=== PATIENT | male | born 1995 | race Caucasian/White ===

== ENCOUNTER 2021-11-20 03:28 | Inpatient (IN) ==
[2021-11-20] MEDS ORDERED: ONDANSETRON INJ 2 MG/ML 2 ML VIAL IV STA (03:40)
[2021-11-20] MEDS: MoRPHine SULFATE 4 MG/ML 1 ML CARP\\VIAL IV PRN ×7 (03:50→11:43)
[2021-11-20 04:04] LABS: Basophils # (auto) 0.03 K/uL (0-0.2); Basophils % (auto) 0.3 %; Eosinophils # (auto) 0.06 K/uL (0-0.5); Eosinophils % (auto) 0.7 %; Hematocrit (blood only) 43.9 % (42-52); Hemoglobin 15.3 g/dL (14.0-18.0); Immature Granulocytes # (auto) 0.01 K/uL (0.00-0.02); Immature Granulocytes % (auto) 0.1 %; Lymphocytes # (auto) 4.01 K/uL (1.2-3.4); Lymphocytes % (auto) 46.7 %; Mean Corpuscular Hemoglobin 30.2 pg (25-34); Mean Corpuscular Hgb Conc 34.9 g/dL (32-36); Mean Corpuscular Volume 86.8 fL (80-100); Mean Platelet Volume 9.7 fL (7.4-10.4); Monocytes # (auto) 0.83 K/uL (0.11-0.59); Monocytes % (auto) 9.7 %; Neutrophils # (auto) 3.64 K/uL (1.4-6.5); Neutrophils % (auto) 42.5 %; Platelet Count 329 K/uL (130-400); RDW Coefficient of Variation 12.5 % (11.5-14.5); RDW Standard Deviation 39.9 fL (36.4-46.3); Red Blood Count 5.06 M/uL (4.7-6.1); White Blood Count 8.58 K/uL (4.8-10.8)
[2021-11-20 04:17] LABS: Albumin Globulin Ratio 1.5 (0.9-2); Albumin Level 4.2 gm/dl (3.4-5.0); Bilirubin,Total 0.4 mg/dl (0.2-1.0); Calcium 8.8 mg/dl (8.5-10.1); Creatinine Clr Calc Pharmacy 131.5 ml/min; Est GFR (African American) 120.7 ml/min; Est GFR (Non-African American) 104.1 ml/min; Globulin 2.8 gm/dl (2.5-4.0); Potassium 4.1 mmol/L (3.5-5.1)
[2021-11-20] MEDS ORDERED: ONDANSETRON INJ 2 MG/ML 2 ML VIAL IV PRN ×3 (04:52→18:22)
--- NOTE | 2021-11-20 05:29 | Emergency Department Note ---
History of Present Illness General Chief complaint: Lower Extremity Injury/Pain Stated complaint: FALL w/ TIB/FIB OPEN FX Time Seen by Provider: 11/20/21 03:36 History of Present Illness Maximum Pain Intensity: 7 This is a 26-year-old male presenting to the emergency department for evaluation of left lower leg injury that occurred just prior to arrival. 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 The patient tried to maneuver out of the way, however this did strike him on the left leg. The patient was not able to ambulate after the injury. He believes that he saw a bone protruding from the leg. EMS did m anipulate the leg and bring it to a more anatomic position. They did call and for medical command and the patient was given 2 g IV Ancef prehospital. The patient is usually healthy without chronic medical disease. He does not take any medication on a regular basis. Past medical history includes lazy eye surgery, but no other surgical history. He last ate food around 6 PM yesterday, and drank liquid around 2 AM today. He does not have any numbness or paresthesias. No active bleeding. He rates his discomfort a 7/10. Allergies Allergy/AdvReac Type Severity Reaction Status Date / Time No Known Allergies Allergy Verified 11/20/21 05:23 Past Med/Surg History Medical History (Updated 11/20/21 @ 05:42 by Rogelio Gusman PA-C) No chronic diseases present Surgical History (Updated 11/20/21 @ 05:35 by Rogelio Gusman PA-C) H/O eye surgery Social History Smoking Status: Never smoker Feels Safe at Home: Yes Review of Systems A total of 10 systems reviewed and were otherwise negative Physical Exam Vital Signs Vital Signs - 24 hr 11/20/21 03:37 11/20/21 04:39 Temperature 36.3 C L Temperature Source Oral Pulse Rate 73 Pulse Rate [Apical] 88 Respiratory Rate 15 14 Respiratory Effort / Characteristics Non-Labored Spontaneous Respiratory Depth Normal Blood Pressure 153/98 H Blood Pressure [Left Arm] 142/85 H Blood Pressure Mean 116 Blood Pressure Mean [Left Arm] 104 Blood Pressure Position Lying Pulse Oximetry 99 98 Oxygen Delivery Method Room Air Room Air Sepsis Recent Fever Within 48 Hours No Sepsis New/Unexplained Change in Mental Status No Sepsis Action Taken by Nursing No Action Required VITALS: Vitals are noted on the nurse's note and reviewed by myself. Vital signs stable. GENERAL: Well-developed, well-nourished, white male, who is moderately uncomfortable but overall cooperative HEAD: Normocephalic atraumatic. NECK: Supple without nuchal rigidity. No lymphadenopathy. No thyromegaly. Cervical spine is nontender. HEART: Regular rate and rhythm without murmurs gallops or rubs. LUNGS: Clear to auscultation bilaterally without wheezes, rales or rhonchi. No retractions or accessory muscle use. ABDOMEN: Positive normal bowel sounds x 4. Soft, nontender, without masses or organomegaly. No guarding or rebound tenderness. MUSCULOSKELETAL: There is notable edema and ecchymosis to the anterior lateral aspect of the left lower leg. There does appear to be a small roughly 2 cm in the area concerning for open tract. Compartments are soft. Patient has full sensation range of motion to the distal ankle and foot. No significant active bleeding. No significant tenderness of the left hip or left knee. Symptoms are intact and normal. NEURO: Patient was alert and oriented to person place and time. CN II through XII grossly intact. No focal neurological deficits. Course Administered Medications Morphine Sulfate (Morphine Sulfate 4 Mg/Ml 1 Ml Carp\Vial) 4 mg IV Q30M PRN PRN Reason: Pain Stop: 12/04/21 03:39 Last Admin: 11/20/21 05:01 Dose: 4 mg Documented by: [id number] Admin: 11/20/21 04:29 Dose: 4 mg Documented by: [id number] Admin: 11/20/21 03:50 Dose: 4 mg Documented by: [id number] Discontinued Medications Ondansetron HCl (Ondansetron Inj 2 Mg/Ml 2 Ml Vial) 4 mg IV NOW STA Stop: 11/20/21 03:41 Last Admin: 11/20/21 03:50 Dose: 4 mg Documented by: [id number] Medical Decision Making Differential Diagnosis Differential diagnosis includes, but is not limited to: Sprain, strain, fracture, dislocation, subluxation, contusion, and others Laboratory Data Result diagrams: 11/20/21 03:40 11/20/21 03:40 Lab Results 11/20/21 11/20/21 11/20/21 Range/Units 03:40 03:40 03:54 WBC 8.58 (4.8-10.8) K/uL RBC 5.06 (4.7-6.1) M/uL Hgb 15.3 (14.0-18.0) g/dL Hct 43.9 (42-52) % MCV 86.8 (80-100) fL MCH 30.2 (25-34) pg MCHC 34.9 (32-36) g/dL RDW Std Deviation 39.9 (36.4-46.3) fL RDW Coeff of Aura 12.5 (11.5-14.5) % Plt Count 329 (130-400) K/uL MPV 9.7 (7.4-10.4) fL Immature Gran % (Auto) 0.1 % Neut % (Auto) 42.5 % Lymph % (Auto) 46.7 % [place] % (Auto) 9.7 % Eos % (Auto) 0.7 % Baso % (Auto) 0.3 % Neut # (Auto) 3.64 (1.4-6.5) K/uL Lymph # (Auto) 4.01 H (1.2-3.4) K/uL [place] # (Auto) 0.83 H (0.11-0.59) K/uL Eos # (Auto) 0.06 (0-0.5) K/uL Baso # (Auto) 0.03 (0-0.2) K/uL Immature Gran # (Auto) 0.01 (0.00-0.02) K/uL Sodium 139 (136-145) mmol/L Potassium 4.1 (3.5-5.1) mmol/L Chloride 107 (98-107) mmol/L Carbon Dioxide 24 (21-32) mmol/L Anion Gap 8 (3-11) BUN 20 (6-23) mg/dl Creatinine 1.00 (0.6-1.4) mg/dl Est Cr Clr Drug Dosing 131.5 ml/min Est GFR ( Amer) 120.7 ml/min Est GFR (Non-Af Amer) 104.1 ml/min BUN/Creatinine Ratio 20.0 (10-20) Glucose 132 H (70-99(Fasting)) mg/dl Calcium 8.8 (8.5-10.1) mg/dl Total Bilirubin 0.4 (0.2-1.0) mg/dl AST 25 (13-39) U/L ALT 35 (7-52) U/L Alkaline Phosphatase 58 (34-104) U/L Total Protein 7.0 (6.0-8.3) gm/dl Albumin 4.2 (3.4-5.0) gm/dl Globulin 2.8 (2.5-4.0) gm/dl Albumin/Globulin Ratio 1.5 (0.9-2) SARS-CoV-2, RNA, NAAT NEGATIVE (NEGATIVE) MDM Narrative Physical exam and history were performed. Nursing notes, EMR, and Medication List were personally reviewed. Patient appears to have suffered injury as described above. Physical exam is concerning for open fracture of the left lower leg. IV access was established and labs were obtained. He has been provided Ancef prehospital. He was given IV morphine and IV Zofran. X-rays were performed. Patient's blood work is as above and was reviewed. He does not have a significantly elevated white blood cell count, gross anemia, bandemia, or significant electrolyte imbalance. X-rays were reviewed by myself and my attending and appear to show fracture of the mid tibia and fibula. Case was discussed with the on-call orthopedist, Dr. Goodman, who will admit the patient for definitive surgical washout and repair later today. Patient's wounds were cleansed and nonadherent dressing was placed underneath an Ortho-Glass splint. COVID was performed and negative. Chest x- ray was also gathered presurgically and did not show any acute findings. Please see the orthopedic dictation for further patient course, plan, and disposition. The chart was completed utilizing [employer] Speech Voice Recognition Software. Grammatical errors, random word insertions, pronoun errors, and incomplete sen tences are an occasional consequence of this system due to software limitations, ambient noise, and hardware issues. Any formal questions or concerns about the content, text, or information contained within the body of this dictation should be directly addressed to the provider for clarification. . Impression & Plan Open fracture of tibia and fibula Discharge Plan Visit Data Chief Complaint: Lower Extremity Injury/Pain Stated Complaint: FALL w/ TIB/FIB OPEN FX ED Provider: Yolanda Morfin ED Midlevel Provider: Rogelio Gusman Discharge Problem: Open fracture of tibia and fibula Patient Disposition: Admitted As Inpatient Forms Stand Alone Forms: My [facility], Virtual Emergency Department, Important Visit Information Referrals Referrals: PCP,NO [Primary Care Provider] - Discharge Problem: Open fracture of tibia and fibula Qualifiers: Encounter type: initial encounter Laterality: left
[2021-11-20] MEDS ORDERED: ceFAZolin 2000MG 2,000 MG/15 ML SYR IV SCH (06:00)
--- NOTE | 2021-11-20 06:56 | XRay Report ---
XR chest 1V portable semi erect CLINICAL HISTORY: Fall/Preop COMPARISON STUDY: No previous studies for comparison. FINDINGS: Cardiac silhouette is prominent, likely due to technique. Probable hypoventilatory study. N o consolidation or evidence for pulmonary edema. No pneumothorax or pleural effusion is noted. IMPRESSION: No acute cardiopulmonary findings. ACT 112: Negative or not required by law. Electronically signed by: Jose Rae M.D. 11/20/2021 6:55 AM
--- NOTE | 2021-11-20 07:07 | History & Physical Report ---
Date of Service November 20, 2021 Assessment & Plan (1) Open fracture of tibia and fibula: Plan: He has an open left tibial shaft fracture. Based on ER description of the wound, it sounds like a grade 1-2 open injury. He did receive 2 g of IV Ancef within an hour of the injury, and there is no evidence of compartment syndrome. I would highly recommend irrigation and debridement and intramedullary nailing of his tibial shaft fracture. He is in agreement this plan. We will get this done as soon as possible. Risks, benefits, and alternatives of surgery were explained in detail. The surgical procedure, as well as postoperative recovery and rehabilitation, was also explained in detail. Risks include bleeding; infection; damage to surrounding structures such as nerves, blood vessels, and tendons that run in the area; persistent pain or stiffness; nonunion; malunion; hardware failure; painful prominent hardware requiring removal; or need for further surgery. The patient understands all of this and wishes to proceed with surgery. Informed consent was obtained. Encounter type: initial encounter Laterality: left Admission and Anticipated Discharge Date Admission Date: November 20, 2021 History of Present Illness Chief Complaint: Left lower leg injury Primary Care Provider: NO PCP Mr. Espino is a 26-year-old male who injured his left leg this morning. 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 He had immediate pain, deformity, and open wound, and inability to bear weight on the left leg. Injury occurred around 2:30-3:00 AM. He was transported to the hospital, and did receive 2 g of IV Ancef in the ambulance en route to the hospital. In the emergency room, his wound was r eported to be about 2 cm in length and directly over the fracture site in the anterior aspect of the lower leg. No gross contamination. The wound was washed out and dressed, and splint was applied. Allergies Allergy/AdvReac Type Severity Reaction Status Date / Time No Known Allergies Allergy Verified 11/20/21 05:23 Past Med/Surg History Medical History (Updated 11/20/21 @ 05:42 by Rogelio Gusman PA-C) No chronic diseases present Surgical History (Updated 11/20/21 @ 05:35 by Rogelio Gusman PA-C) H/O eye surgery Social History Smoking Status: Never smoker Feels Safe at Home: Yes Physical Exam Physical Exam: Is resting comfortably in bed. No apparent distress. Examination of the left lower leg reveals a posterior and U-splint in place. Compartments are soft and compressible. Motor and sensory function is intact distally. No pain with passive stretch of the great toe. Foot is warm well perfused. Results & Data ([facility]) Vital Signs (Past 12 Hours) Vital Signs Temp Pulse Pulse Resp BP BP Pulse Ox 11/20/21 04:39 88 14 142/85 H 98 11/20/21 03:37 36.3 C L 73 15 153/98 H 99 Diagnostic Findings X-rays of the left lower leg show a moderately displaced but minimally comminuted diaphyseal tibial shaft fracture with associated fibular shaft fracture. Code Status & VTE Plan VTE Prophylaxis Plan VTE Prophylaxis will be ordered: Yes
--- NOTE | 2021-11-20 07:21 | XRay Report ---
XR tibia fibula LT 2V CLINICAL HISTORY: Fracture. COMPARISON: None FINDINGS: Note is made of acute comminuted displaced fractures of the mid diaphyses of the left tibi a and fibula. Soft tissue gas is noted. This indicates open fracture, likely due to the tibial fractu re. Tibial fracture is displaced 1.4 cm. Fibular fracture is displaced 1.1 cm. A few punctate densiti es adjacent to the tibial fracture likely reflect bone fragments. Alignment of the left knee and left ankle is anatomic. Talar dome is intact. IMPRESSION: Open displaced comminuted left tibial and fibular diaphyseal fractures, as described abov e. ACT 112: Negative or not required by law. Electronically signed by: Jose Rae M.D. 11/20/2021 7:19 AM
[2021-11-20] MEDS ORDERED: ONDANSETRON INJ 2 MG/ML 2 ML VIAL ONE (13:25)
[2021-11-20] MEDS ORDERED: MIDAZOLAM HCL 1 MG/ML 2ML VIAL ONE (13:25)
[2021-11-20] MEDS ORDERED: LIDOCAINE 2% 2 ML VIAL/AMP(20MG/ML) INFIL ONE (13:25)
[2021-11-20] MEDS ORDERED: PROPOFOL IV EMULSION 10 MG/ML 20 ML VIAL IV ONE (13:25)
[2021-11-20] MEDS ORDERED: fentaNYL citrate 100 MCG/2 ML VIAL ONE ×2 (13:25→14:55)
[2021-11-20] MEDS ORDERED: DEXAMETHASONE SOD INJ 4 MG/ML VIAL ONE (13:25)
--- NOTE | 2021-11-20 13:36 | Anesthesiology Consultation ---
Date of Service November 20, 2021 Assessment & Plan Chart Review Chart Review: Acceptable Risk for Surgery and Patient NOT seen in Pre Admission Testing Consults Requested none ASA ASA1 Proposed Anesthesia Anesthesia Type: General Risk / Benefits Reviewed With: PT / POA / Parent / Guardian, Accepts Plan and Informed Consent Obtained Additional Comments: covid test negative History Surgery Operation Date: 11/20/21 09:00 Proposed Procedures p Left Intramedullary Nail Tibia - Roberto Goodman M.D. Height/Weight Height: 5 ft 10 in Weight: 93.5 kg Allergies Allergy/AdvReac Type Severity Reaction Status Date / Time No Known Allergies Allergy Verified 11/20/21 05:23 Medications Active Medications Generic Name Dose Route Start Last Admin Trade Name Freq PRN Reason Stop Dose Admin Morphine Sulfate 4 mg 11/20/21 03:40 11/20/21 11:43 Morphine Sulfate 4 Mg/Ml 1 Ml Carp\Vial IV 12/04/21 03:39 4 mg Q30M PRN Administration Pain NPO Date Last Intake of Fluids: 11/19/21 Time Last Intake of Fluids: 18:00 Date Last Intake of Solids: 11/19/21 Time Last Intake of Solids: 18:00 Past Medical History Medical History No chronic diseases present Exercise / Class Metabolic Activity 1 > 8 Run/Swim/Ski/Tennis Past Surgical History Surgical History H/O eye surgery Past Anesthesia History No Hx of Anesthesia Complications and No Family Hx of Anesthesia Complications History of PONV No Hx of PONV and No Hx of Motion Sickness Social History Smoking Status: Never smoker Hx Alcohol Use: Yes Alcohol type: wine alcohol intake frequency: holidays/special occasions only Hx Substance Use: No Physical Exam Vital Signs Last Vital Signs Temp 36.8 C 11/20/21 13:20 Pulse 119 H 11/20/21 13:20 Resp 22 11/20/21 13:20 BP 155/89 H 11/20/21 13:20 Pulse Ox 93 11/20/21 13:20 Constitutional not obese ENMT Mouth: no dentition abnormality Thyromental Distance: > or= 3.5 Finger Breadths Mallampati Class: II Neck normal visual inspection, trachea midline and + facial hair; neck extension not limited Respiratory normal respiratory effort Auscultation: lungs clear to auscultation bilaterally Cardiovascular Rate/Rhythm: regular rate and regular rhythm Heart Sounds: no murmur Vessels: no carotid bruit Musculoskeletal Spine: normal cervical ROM Extremities: + extremities abnormal to inspection Neurologic moves all extremities Motor/Sensory: no sensory deficit Psychiatric Orientation: alert and oriented x 3 Testing Laboratory Results 11/20/21 03:40 11/20/21 03:40 Chest X-Ray Date: 11/20/21 Findings: + NAD
[2021-11-20] MEDS ORDERED: FLUMAZENIL 0.1 MG/1 ML 10 ML VIAL IV PRN (13:37)
[2021-11-20] MEDS ORDERED: HYDROmorphone INJ 1 MG/ML SYRINGE IV PRN (13:37)
[2021-11-20] MEDS ORDERED: NALOXONE HCL 0.4 MG/1 ML VIAL/CARP IV PRN ×2 (13:37→18:22)
[2021-11-20] MEDS ORDERED: PROMETHAZINE HCL 12.5 MG in SODIUM CHLORIDE 0.9% 50 ML IV PRN (13:37)
[2021-11-20] MEDS ORDERED: fentaNYL citrate 100 MCG/2 ML VIAL IV PRN (13:37)
[2021-11-20] MEDS ORDERED: ATROPINE SULFATE 0.1 MG/ML 10ML SYR IV PRN (13:37)
[2021-11-20] MEDS ORDERED: ePHEDrine sulfate 50 MG/ML AMP IV PRN (13:37)
[2021-11-20] MEDS ORDERED: HYDROmorphone INJ 2 MG/ML SYR/VIAL ONE (14:35)
[2021-11-20] MEDS ORDERED: NEOSTIGMINE METHYLSULFATE 1 MG/ML 10ML VIAL ONE (14:42)
[2021-11-20] MEDS ORDERED: ceFAZolin 330 MG/ML 1 GM VIAL ONE (14:42)
[2021-11-20] MEDS ORDERED: GLYCOPYRROLATE 0.2 MG/ML VIAL ONE (14:42)
--- NOTE | 2021-11-20 16:45 | Post Operative Brief Note ---
Immediate Post Op Note v1 Date of Surgery November 20, 2021 Pre & Post Diagnosis Operation Date: 11/20/21 09:00 Pre-Op Diagnosis: Left leg open tibia and fibula fracture Post-Op Diagnosis: Left leg open tibia and fibula fracture I identified the patient and participated in the time-out.: Yes Procedure Operation Date: 11/20/21 09:00 Actual Procedures p Irrigation and debridement of open tibia fracture and Intramedullary nailing of open tiba fracture (Left) - Roberto Goodman M.D. Surgeon Roberto Goodman Nitrogen Operator Foster Borges PA-C Estimated Blood Loss 75 Findings Consistent with Post-Op Diagnosis
--- NOTE | 2021-11-20 16:48 | Operative Report ---
Post Operative Report Pre & Post Diagnosis Operation Date: 11/20/21 09:00 Pre-Op Diagnosis: Left leg open tibia and fibula fracture Post-Op Diagnosis: Left leg Grade 1 open tibia and fibula fracture I identified the patient and participated in the time-out.: Yes Procedure Operation Date: 11/20/21 09:00 Actual Procedures 1. Left leg irrigation and debridement of Grade 1 open tibia fracture (23732) 2. Intramedullary nailing of left tibial shaft fracture (59151) - Roberto Goodman M.D. Surgeon Roberto Goodman Junior Loan Processor Foster Borges PA-C Estimated Blood Loss 75 Findings Consistent with Post-Op Diagnosis Specimens None Drains None Anesthesia Type General Complications none Disposition Disposition: Recovery Room Indications Mr. Espino is a 26-year-old male who injured his left lower leg when a heavy milk crate fell against that earlier this morning. History, clinical exam, and imaging were consistent with the above diagnosis. Risks, benefits, and alternatives of surgery were explained in detail. The patient understood all this and wished to proceed. Description of Procedure Patient was identified in the preoperative holding area. Operative extremity was marked. Regional blockade was given by the Anesthesia Staff. Patient was then brought back to the operating room, and general anesthesia was induced wit hout complication. Appropriate weight-based dose of Ancef was infused intravenously for antibiotic prophylaxis. Tourniquet was placed on the left thigh. The leg was then prepped and draped in a standard sterile fashion using Chlorhexidine prep. The leg was then exsanguinated with an Esmarch, and the tourniquet was inflated. I first examined the open wound and underlying fracture site. There was an approximately 1.5 cm oblique laceration on the anterior medial aspect of the lower leg at about the midshaft tibia level. There was copious bloody drainage consistent with an open fracture site. The fracture fragments were palpable deep within the wound. There is no obvious gross contamination within the wound. The open fracture site was extended proximally and distally as necessary for adequate debridement of the soft tissues and open fracture site. Aggressive but careful sharp debridement was performed with a curette, rongeur, knife, and scissors. After complete and thorough debridement was performed, I then copiously irrigated the wound with sterile saline via pulsatile irrigation. After thorough debridement and irrigation were complete, I then proceeded with fracture fixation. Reduction maneuver was performed, and adequate alignment was achieved both under fluoroscopic imaging and by direct palpation at the open fracture site. I then hyperflexed the knee and made a medial parapatellar incision. Guidewire was placed onto the anterior corner of the tibial plateau. Proper position and trajectory was verified under fluoroscopic imaging. The guidewire was then driven into the proximal tibia. Entry reamer was then passed over the guidewire, using a drill sleeve to protect the patellar tendon. I then placed a ball-tipped guidewire into the tibial shaft with a small bend at the distal tip. This was advanced across the fracture site and driven into center- center position in the distal tibia, stopping at the physeal scar. I then measured for proper length of the tibial nail, and selected a 360mm nail as proper nail length. I then sequentially reamed over the guidewire until I got proper cortical chatter with a 11.5mm reamer diameter, and therefore selected an 10mm nail as a proper nail diameter. The nail was then inserted over the guidewire and seated properly into the distal tibia, while ensuring there was no displacement of the fracture site during nail advancement. I then placed 2 proximal locking screws, 1 through the dynamic hole and 1 through a static locking hole, utilizing a radiolucent drill guide. Appropriate length 5mm proximal locking screws were drilled, measured, and inserted. I then removed the proximal targeting guide off of the proximal aspect of the nail. I threaded a 5mm cap into the proximal end of the nail to assist in potential future removal. The leg was then extended, and two 5mm distal locking screws were placed to stabilize the distal fracture fragment. Final fluoroscopic imaging was then obtained to verify proper hardware position, screw length, and fracture reduction. Wounds were then copiously irrigated with sterile saline. Medial parapatellar arthrotomy was closed with 1 Vicryl suture. Subcutaneous tissue was closed with 3-0 Vicryl, and skin was closed with tracy. Sterile dressings were then applied with Xeroform, sterile gauze, sterile Webril, a posterior plaster splint, and Bob wrap. The drapes were removed, the patient was awakened from anesthesia, and taken to the Post Anesthesia Care Unit in stable condition. There were no immediate complications from the procedure. I was present and scrubbed for the entire procedure. Due to the complex nature of the procedure, the entire surgery was performed with the operational assistance of Foster Borges PA-C. The periodicals library assistant, under direct supervision, was involved in the performance of all aspects of the surgical procedure including patient positioning, tissue retraction, hemostasis, wound closure, and dressing application. I attest to the content of the Intraoperative Record and any orders documented therein. Any exceptions are noted below.
--- NOTE | 2021-11-20 16:56 | Fluoroscopy Report ---
INTRAOPERATIVE RADIOGRAPHS CLINICAL HISTORY: Open reduction and internal fixation of the left tibia. Fluoroscopy time: 1 minute 6 seconds. FINDINGS: 7 spot fluoroscopic views of the left tibia and fibula are correlated with radiographs date d 11/20/2021. Again seen are comminuted fractures through the midshaft of the left tibia and fibula. A n intramedullary nail has been placed in the left tibia transfixing the fracture with rastafarian of near-anatomic alignment. 2 cortical lag screw transfixes the proximal and distal ends of the intramed ullary nail. The orthopedic hardware appears intact. Alignment of the fibular fracture is also improv ed. IMPRESSION: Intraoperative images from open reduction and internal fixation of a left tibial fracture as above. Electronically signed by: Ino Hernandez M.D. 11/20/2021 4:55 PM
[2021-11-20] MEDS ORDERED: LABETALOL HCL IV 5 MG/ML 20ML IV PRN (17:20)
--- NOTE | 2021-11-20 17:46 | Anesthesiology Progress Note ---
Date of Service November 20, 2021 Anesthesia Post Procedure Vital Signs Vital Signs: Temp Pulse Pulse Pulse Resp BP BP 11/20/21 17:40 112 H 13 11/20/21 17:30 111 H 14 11/20/21 17:20 108 H 16 11/20/21 17:10 112 H 17 11/20/21 17:00 110 H 17 11/20/21 16:51 97.5 F L 112 H 22 11/20/21 13:20 98.2 F 119 H 22 11/20/21 06:10 98.4 F 81 18 128/79 11/20/21 04:39 88 14 142/85 H 11/20/21 03:37 97.3 F L 73 15 153/98 H BP Pulse Ox 11/20/21 17:40 148/97 H 92 11/20/21 17:30 147/103 H 95 11/20/21 17:20 154/85 H 93 11/20/21 17:10 133/102 H 90 11/20/21 17:00 128/98 90 11/20/21 16:51 151/95 H 90 11/20/21 13:20 155/89 H 93 11/20/21 06:10 95 11/20/21 04:39 98 11/20/21 03:37 99 Pain Intensity Left Leg: Pain Intensity: 4 Transfer of Care Handoff Completed per policy Notes Mental Status: alert / awake / arousable and participated in evaluation Patient Amnestic to Procedure: Yes Nausea / Vomiting: adequately controlled Pain: adequately controlled Airway Patency, RR, SpO2: stable & adequate BP & HR: stable & adequate Hydration State: stable & adequate Anesthetic Complications: no major complications apparent and Pt Satisfied with anesthetic care
[2021-11-20] MEDS ORDERED: bisacodyL 10 MG SUPP PR PRN (18:22)
[2021-11-20] MEDS ORDERED: MAGNESIUM HYDROXIDE SUSP 30 ML UDC PO PRN (18:22)
[2021-11-20] MEDS ORDERED: METOCLOPRAMIDE HCL INJ 5 MG/ML 2 ML VIAL IV PRN (18:22)
[2021-11-20] MEDS ORDERED: diphenhydrAMINE Capsule 25 MG CAP PO PRN (18:22)
[2021-11-20] MEDS: SODIUM CHLORIDE 0.9% 1000ML 1,000 ML IV SCH (18:46)
[2021-11-20] MEDS: HYDROmorphone INJ 1 MG/ML SYRINGE IV PRN (18:50)
[2021-11-20] MEDS: ACETAMINOPHEN 500 MG TAB PO SCH (22:21)
[2021-11-20] MEDS: ceFAZolin 2000MG 2,000 MG/15 ML SYR IV SCH (22:21)
[2021-11-20] MEDS: DOCUSATE SODIUM 100 MG CAP PO SCH (22:22)
[2021-11-20] MEDS: SENNA 8.6 MG TAB PO SCH (22:22)
[2021-11-21] MEDS: HYDROmorphone INJ 1 MG/ML SYRINGE IV PRN ×4 (00:02→13:32)
[2021-11-21] MEDS: oxyCODONE HCL IR 5 MG TAB (IMMEDIATE RELEASE) PO PRN ×4 (02:45→18:18)
[2021-11-21] MEDS: ceFAZolin 2000MG 2,000 MG/15 ML SYR IV SCH ×3 (05:28→22:32)
[2021-11-21] MEDS: ACETAMINOPHEN 500 MG TAB PO SCH ×3 (05:29→21:10)
[2021-11-21] MEDS: SODIUM CHLORIDE 0.9% 1000ML 1,000 ML IV SCH (06:10)
[2021-11-21 06:24] LABS: Hematocrit (blood only) 40.2 % (42-52); Hemoglobin 13.5 g/dL (14.0-18.0); Mean Corpuscular Hgb Conc 33.6 g/dL (32-36); Mean Corpuscular Volume 86.5 fL (80-100); Mean Platelet Volume 9.9 fL (7.4-10.4); Platelet Count 316 K/uL (130-400); RDW Coefficient of Variation 12.8 % (11.5-14.5); RDW Standard Deviation 40.5 fL (36.4-46.3); Red Blood Count 4.65 M/uL (4.7-6.1); White Blood Count 14.72 K/uL (4.8-10.8)
[2021-11-21 06:45] LABS: BUN Creatinine Ratio 14.4 (10-20); Calcium 8.3 mg/dl (8.5-10.1); Creatinine Clr Calc Pharmacy 144.1 ml/min; Est GFR (African American) 137.1 ml/min; Est GFR (Non-African American) 118.3 ml/min
[2021-11-21] MEDS: MULTIVITAMIN TAB PO SCH (08:33)
[2021-11-21] MEDS: ASPIRIN 325 MG ECTAB PO SCH (08:33)
[2021-11-21] MEDS: DOCUSATE SODIUM 100 MG CAP PO SCH ×2 (08:33→21:10)
--- NOTE | 2021-11-21 12:49 | Orthopedic Progress Note ---
Date of Service November 21, 2021 Assessment & Plan (1) Open fracture of tibia and fibula: Plan: Postop day 1 status post IM tibial nailing left open tib-fib fracture PT/OT protocols-nonweightbearing left lower extremity. DVT prophylaxis-aspirin 325 mg p.o. daily. Pain management as written. DC planning-Per Dr. Goodman is, secondary to his open fracture, he would like him to stay until tomorrow receiving 48 hours of antibiotics. Plan for discharge to home tomorrow. Admission and Anticipated Discharge Date Admission Date: November 20, 2021 Subjective Postop day 1 Patient just returned to his bed from going to the bathroom. Attempted to have a BM but was unsuccessful. Patient states he is passing gas. Having pain off and on in the operative leg. Some mild tingling in the toes. Denies shortness of breath, chest pain, lightheadedness. Patient was needing supplemental O2 desaturating down in the 80s. O2 sat reading at 1148 was 97 on room air. Physical Exam Physical Exam: Patient appears somewhat groggy secondary to pain medications. Dressings are clean, dry, and intact. Calves are soft and nontender. He has good dorsiflexion and plantarflexion of the left foot with some mild decrease sensation in the toes. Results & Data ([facility]) Vital Signs (Past 12 Hours) Vital Signs Temp Pulse Resp BP BP Pulse Ox Pulse Ox 11/21/21 11:48 97 11/21/21 11:12 37.2 C 104 H 20 146/97 H 96 11/21/21 07:23 37.4 C 99 H 18 143/77 H 98 11/21/21 03:18 36.9 C 112 H 18 139/79 97 Laboratory Results 11/21/21 11/21/21 Range/Units 05:50 05:50 WBC 14.72 H (4.8-10.8) K/uL RBC 4.65 L (4.7-6.1) M/uL Hgb 13.5 L (14.0-18.0) g/dL Hct 40.2 L (42-52) % MCV 86.5 (80-100) fL MCH 29.0 (25-34) pg MCHC 33.6 (32-36) g/dL RDW Std Deviation 40.5 (36.4-46.3) fL RDW Coeff of Aura 12.8 (11.5-14.5) % Plt Count 316 (130-400) K/uL MPV 9.9 (7.4-10.4) fL Sodium 137 (136-145) mmol/L Potassium 4.0 (3.5-5.1) mmol/L Chloride 104 (98-107) mmol/L Carbon Dioxide 26 (21-32) mmol/L Anion Gap 7 (3-11) BUN 13 (6-23) mg/dl Creatinine 0.90 (0.6-1.4) mg/dl Est Cr Clr Drug Dosing 144.1 ml/min Est GFR ( Amer) 137.1 ml/min Est GFR (Non-Af Amer) 118.3 ml/min BUN/Creatinine Ratio 14.4 (10-20) Glucose 131 H (70-99(Fasting)) mg/dl Calcium 8.3 L (8.5-10.1) mg/dl (1) Open fracture of tibia and fibula Encounter type: initial encounter Laterality: left
[2021-11-21] MEDS ORDERED: KETOROLAC 30 MG/ML VIAL IM STA (20:38)
--- NOTE | 2021-11-21 21:00 | Hospitalist Consultation ---
Date of Consultation November 21, 2021 Assessment & Plan (1) Hypoxia: Avel Espino is a 26yo male, otherwise healthy, who was admitted to [facility] on 11/20 for an open left tibial shaft fracture and had I&D of open wound as well as intramedullary nailing of the tibial shaft, done by Dr. Goodman ([facility]) - done on 11/20. We were consulted for hypoxia. Hypoxia and Tachycardia Remains hypoxic to high 80s on room air and has been tachycardic to mostly 110s throughout the day. Also with low-grade fever 37.7C. Symptoms most likely due to post-operative atelectasis, although PE vs aspiration pneumonitis/PNA cannot be completely ruled out without further testing. - ordered CTA chest for further evaluation - consider left LE venous doppler to r/o DVT (pending CTA results) - continue supplemental O2 as necessary to maintain SpO2 >90% - encouraged incentive spirometry Generalized Pruritis ?allergy from anesthesia vs abx. No rash or s/s anaphylaxis at this time. - agree with PRN Benadryl PO x1 now - added Hydroxyzine to use first in the future, as it is less sedating Open Left Tibial Shaft Fracture, POD1 IM Nailing of Left Tibial Shaft - agree with scheduled Toradol 15mg Q6H with Tylenol vs Dilaudid for br eakthrough pain - agree with Senna/Docusate to encourage post-op BM - continue Ancef IV for ilene-operative ppx - continue Aspirin 325mg PO daily for DVT ppx Thank you for the interesting consult. Please refer to Dr. Cardenas's addendum for further documentation. We will continue to follow along with you. (2) Generalized pruritus: (3) Open fracture of tibia and fibula: Pt seen/examined in conjunction with resident MD Luis Felipe Roblero. This is a consult by request of orthopedic surgery. 27 y/o M without active medical issues. He is post op repair of an open fracture of the L tibial shaft. The pt developed a low-grade fever, mild hypoxia and tachycardia. We were asked to evaluate him therefore. The pt denies SOB and does have a degree of pain, however, tachycardia has persisted when his pain is controlled and while he was sleeping. O/E General: AAO x 3, no distress ENT: No erythema or exudates, no thrush Eyes: ONEL, EOMI Head and neck: Normocephalic, atraumatic, No JVD, neck is supple. Chest/heart: Nontender, S1,2, RRR, no murmurs, no gallops Lungs: CTAB, no wheezing or crackles Abdomen: Nontender, nondistended, BS+ Neuro: AAO x 3, speech is clear, no unilateral weakness or loss of sensation, coordination intact Musculoskeletal: L leg is casted - pulses + Skin: No acute rashes or ulcers Extremities: No clubbing, cyanosis, edema A/P Owing to low-grade fever, tachycardia and mild hypoxia, the pt will be scheduled for a CTA to R/O PE or aspiration. The medical service will F/U after the study is completed. He is comfortable and stable on 2L 02. Total time for this consult including review of labs, meds, records, discussion/exam with pt 31 min History of Present Illness Reason for Consultation: hypoxia Requesting Physician: Tom Sol Attending Physician: Roberto Goodman History of Present Illness Avel Espino is a 26yo male, otherwise healthy, who was admitted to [facility] on 11/20 for an open left tibial shaft fracture and had I&D of open wound as well as intramedullary nailing of the tibial shaft, done by Dr. Goodman ([facility]) - done on 11/20. Patient was started on Ancef via EMS and has been continued on Ancef 2g IV Q8H for perioperative ppx. Patient was also started on Aspirin 325mg PO daily for DVT ppx (started this morning), and he has received several doses of both Oxycydone and Dilaudid today for pain. Patient is POD1 from surgery and was reportedly doing well overall, but became hypoxic to 89% earlier this afternoon requiring 2L/min supplemental O2 via NC - now is satting 98% with 2L. Also has remained mildly tachycardic in 100s-110s and has low-grade fever 37.7C as of this evening. We were consulted for hypoxia. Patient reports feeling slightly warm this evening. Denies SOB but does feel a little more comfortable when 2L/min is running. Of note he has 8/10 left leg pain which has been somewhat responsive to Dilaudid although he is a little "groggy" from the medication. He has been using incentive spirometer consistently without issues. Of note patient reports mild generalized itching since his surgery yesterday. No rashes. No tongue/lip swelling or lightheadedness. Patient has been passing gas, has gotten up with PT and walked to the bathroom. 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 NAD. Cooperative. HEENT: Atraumatic, normocephalic. NC in place. Pulm: CTAB A&P. -wheezes, -rales, -rhonchi. Symmetrical chest rise. No increase work of breathing. No respiratory distress. Cardiac: tachycardic rate, regular rhythm, -mrg. Radial pulses intact and symmetrical. No LE edema. Abdominal: soft, non-tender, non-distended, BS x 4 Left leg: dressing in place and c/d/i. Right leg: Petr's sign negative. No calf tenderness. No swelling/erythema/warmth. Results & Data Results & Data ([facility]) Vital Signs (Past 12 Hours) Vital Signs Temp Pulse Resp BP Pulse Ox Pulse Ox 11/21/21 18:18 106 H 98 11/21/21 18:14 112 H 89 L 11/21/21 17:03 111 H 94 11/21/21 15:49 37.7 C H 89 20 136/82 92 11/21/21 14:30 95 11/21/21 11:48 97 11/21/21 11:12 37.2 C 104 H 20 146/97 H 96 Resident Activity Tracking Resident Involvement: Resident Care Provided Care Provided: Adult Hospital Medicine (1) Open fracture of tibia and fibula Encounter type: initial encounter Laterality: left
[2021-11-21] MEDS: SENNA 8.6 MG TAB PO SCH (21:10)
[2021-11-21] MEDS ORDERED: hydrOXYzine HCl 10 MG TAB PO PRN (21:33)
[2021-11-21] MEDS ORDERED: OPTIRAY 320 125ml IV ONE (23:34)
[2021-11-21] MEDS: KETOROLAC TROMETHAMINE 15 MG/ML VIAL IV SCH (23:54)
[2021-11-22] MEDS: oxyCODONE HCL IR 5 MG TAB (IMMEDIATE RELEASE) PO PRN ×2 (05:13→12:19)
[2021-11-22] MEDS: KETOROLAC TROMETHAMINE 15 MG/ML VIAL IV SCH (06:28)
[2021-11-22] MEDS: ceFAZolin 2000MG 2,000 MG/15 ML SYR IV SCH ×2 (06:28→14:11)
[2021-11-22] MEDS: ACETAMINOPHEN 500 MG TAB PO SCH ×2 (06:28→14:02)
--- NOTE | 2021-11-22 07:24 | CT Scan Report ---
CT ANGIOGRAM OF THE CHEST CLINICAL HISTORY: Tachycardia. Hypoxia. COMPARISON STUDY: Chest x-ray dated 11/20/2021. TECHNIQUE: Following the IV administration of 118 cc of Optiray 320, CT angiogram of the chest was pe rformed from the upper abdomen to the thoracic inlet utilizing the pulmonary embolus protocol. Images are reviewed in the axial, sagittal, and coronal planes. 3-D MIPS images are created and assessed. I V contrast was administered without complication. A dose lowering technique was utilized adhering to the principles of ALARA. CT DOSE: 449.74 mGy.cm FINDINGS: Thyroid: Imaged portions of the thyroid gland are normal in size and attenuation. Thoracic aorta: The thoracic aorta is normal in caliber and demonstrates standard 3-vessel arch anato my. No dissection is seen. Pulmonary vasculature: The pulmonary trunk is normal in caliber. There are no filling defects identif ied in main, lobar, or proximal segmental pulmonary branches to suggest pulmonary embolus. Evaluation of the segmental and subsegmental branches is degraded by motion artifact. Heart: The heart is mildly enlarged and without pericardial effusion. Lungs and pleural spaces: Evaluation of the lung parenchyma is modestly degraded by motion artifact. There is trace left pleural effusion and dependent atelectasis. There is no airspace consolidation ty pical for pneumonia. The trachea and central airways are clear. Mediastinum: There is no mediastinal lymphadenopathy. Ashley: Clear. Axillae: There is no axillary lymphadenopathy. Upper abdomen: Partially visualized upper abdominal viscera is within normal limits. Skeletal structures: No lytic or blastic bony lesions are seen. IMPRESSION: 1. There is no evidence of pulmonary embolus in the main, lobar, or proximal segmental pulmonary dipak tari. 2. Mild cardiomegaly. 3. Trace left pleural effusion and dependent atelectasis. 4. There is no airspace consolidation typical for pneumonia. ACT 112: Negative or not required by law. Electronically signed by: Ino Hernandez M.D. 11/22/2021 7:22 AM
--- NOTE | 2021-11-22 07:39 | Hospitalist Progress Note ---
Date of Service November 22, 2021 Assessment & Plan (1) Hypoxia: Plan: Avel Espino is a 26yo male, otherwise healthy, who was admitted to [facility] on 11/20 for an open left tibial shaft fracture and had I&D of open wound as well as intramedullary nailing of the tibial shaft, done by Dr. Goodman ([facility]) - done on 11/20. We were consulted for hypoxia. Hypoxia and Tachycardia POD1 evening was hypoxic to high 80s on room air and had been tachycardic to mostly 110s throughout the day. Low-grade fever 37.7C. Symptoms most likely due to post-operative atelectasis, although PE vs aspiration pneumonitis/PNA considered - ordered CTA chest for further evaluation -- NEGATIVE. Does show some dependent atelectasis, trace L effusion suspect atelectasis as cause for low grade temp, incentive spirometer ordered titrated to 91% on RA this morning, supplemental O2 to maintain sats >90% Do not feel need for US Doppler to r/o DVT and suspect temp from atelectasis ICS to be sent with patient at d/c and encouraged continued use No longer hypoxic, rates improved with pain control, but currently after working with PT was 102bpm, suspect related to pain. No palpitations/lightheadedness/dizziness F/u outpatient with PCP Generalized Pruritis ?allergy from anesthesia vs abx. No rash or s/s anaphylaxis at this time. - given PRN Benadryl PO x1 now - added Hydroxyzine to use first in the future, as it is less sedating No further issues reported Open Left Tibial Shaft Fracture, POD1 IM Nailing of Left Tibial Shaft POD#2 s/p 1. Left leg irrigation and debridement of Grade 1 open tibia fracture (05290) 2. Intramedullary nailing of left tibial shaft fracture (71378) - Roberto Goodman M.D. EBL 75cc Pain control -- Toradol IV, tylenol. Dilaudid available prn for breakthrough Toradol d/c ASA 325mg daily for DVT prophylaxis Ancef IV ilene-operative WBC improved, no further fevers PT/OT consulted --> PT providing with crutches for steps, patient already with wheeled walker at home Outpt f/u ortho as planned Hospitalist service will sign off. Please call with any questions/concerns. (2) Generalized pruritus: (3) Open fracture of tibia and fibula: Plan: Pt seen/examined in conjunction with resident MD Luis Felipe Roblero. This is a consult by request of orthopedic surgery. 27 y/o M without active medical issues. He is post op repair of an open fracture of the L tibial shaft. The pt developed a low-grade fever, mild hypoxia and tachycardia. We were asked to evaluate him therefore. The pt denies SOB and does have a degree of pain, however, tachycardia has persisted when his pain is controlled and while he was sleeping. O/E General: AAO x 3, no distress ENT: No erythema or exudates, no thrush Eyes: ONEL, EOMI Head and neck: Normocephalic, atraumatic, No JVD, neck is supple. Chest/heart: Nontender, S1,2, RRR, no murmurs, no gallops Lungs: CTAB, no wheezing or crackles Abdomen: Nontender, nondistended, BS+ Neuro: AAO x 3, speech is clear, no unilateral weakness or loss of sensation, coordination intact Musculoskeletal: L leg is casted - pulses + Skin: No acute rashes or ulcers Extremities: No clubbing, cyanosis, edema A/P Owing to low-grade fever, tachycardia and mild hypoxia, the pt will be scheduled for a CTA to R/O PE or aspiration. The medical service will F/U after the study is completed. He is comfortable and stable on 2L 02. Total time for this consult including review of labs, meds, records, discussion/exam with pt 31 min Admission and Anticipated Discharge Date Admission Date: November 20, 2021 Subjective patient evaluated later this morning. doing alright. just worked with therapy and pain creeping back up, controlled with ordered medications. has walker at home but PT getting pair of crutches and patient able to have someone at home with him to ensure stable/assistance if needed. Stable on RA. Tachy w/ rate 102 bpm currently, but as stated increased pain. No CP/SOb. Eating/drinking no issue, moving bowels. No nausea/vomiting or further fever. Encouraged incentive spirometer at discharge as well. No lightheadedness/dizziness/headache reported. Review of Systems Review of Systems: All systems reviewed & are unremarkable except as noted in HPI & below Physical Exam Physical Exam: General: WN/WD male sitting up in bed, just finished working with therapy. HEENT: normocephalic, atraumatic, pupils equal and reactive, mmm, trachea midline without deviation Resp: CTAB, slightly diminished in the bases with faint bibasilar crackles (improved with cough), no w/r, on room air CV: rate 102bpm, regular, no m/r/g, no calf tenderness/increased edema GI:+BS, soft, nontender : no leos MSK/Neuro: L w/ cast, leg dressing in place c/d/i, toes mobile, sensation intact, cap refill wnl Psych: AOx3, pleasant and cooperative Results & Data Results & Data ([facility]) Vital Signs (Past 12 Hours) Vital Signs Temp Pulse Resp BP Pulse Ox 11/22/21 07:19 36.9 C 108 H 16 143/88 H 91 11/22/21 06:33 111 H 90 11/22/21 05:16 102 H 96 11/21/21 23:12 36.9 C 98 H 17 139/92 95 Laboratory Results 11/22/21 11/22/21 Range/Units 07:48 07:48 WBC 10.98 H (4.8-10.8) K/uL RBC 4.42 L (4.7-6.1) M/uL Hgb 13.3 L (14.0-18.0) g/dL Hct 38.2 L (42-52) % MCV 86.4 (80-100) fL MCH 30.1 (25-34) pg MCHC 34.8 (32-36) g/dL RDW Std Deviation 39.8 (36.4-46.3) fL RDW Coeff of Aura 12.4 (11.5-14.5) % Plt Count 267 (130-400) K/uL MPV 9.9 (7.4-10.4) fL Immature Gran % (Auto) 0.1 % Neut % (Auto) 79.0 % Lymph % (Auto) 9.4 % Florence % (Auto) 10.0 % Eos % (Auto) 1.3 % Baso % (Auto) 0.2 % Neut # (Auto) 8.68 H (1.4-6.5) K/uL Lymph # (Auto) 1.03 L (1.2-3.4) K/uL Florence # (Auto) 1.10 H (0.11-0.59) K/uL Eos # (Auto) 0.14 (0-0.5) K/uL Baso # (Auto) 0.02 (0-0.2) K/uL Immature Gran # (Auto) 0.01 (0.00-0.02) K/uL Sodium 136 (136-145) mmol/L Potassium 3.7 (3.5-5.1) mmol/L Chloride 101 (98-107) mmol/L Carbon Dioxide 27 (21-32) mmol/L Anion Gap 8 (3-11) BUN 13 (6-23) mg/dl Creatinine 0.81 (0.6-1.4) mg/dl Est Cr Clr Drug Dosing 160.1 ml/min Est GFR ( Amer) 143.2 ml/min Est GFR (Non-Af Amer) 123.5 ml/min BUN/Creatinine Ratio 16.0 (10-20) Glucose 111 H (70-99(Fasting)) mg/dl Calcium 8.6 (8.5-10.1) mg/dl Magnesium 1.9 (1.7-2.4) mg/dl Diagnostic Findings Chest CTA 11/21/21 21:23 CT ANGIOGRAM OF THE CHEST CLINICAL HISTORY: Tachycardia. Hypoxia. COMPARISON STUDY: Chest x-ray dated 11/20/2021. TECHNIQUE: Following the IV administration of 118 cc of Optiray 320, CT angiogram of the chest was performed from the upper abdomen to the thoracic inlet utilizing the pulmonary embolus protocol. Images are reviewed in the axial, sagittal, and coronal planes. 3-D MIPS images are created and assessed. IV contrast was administered without complication. A dose lowering technique was utilized adhering to the principles of ALARA. CT DOSE: 449.74 mGy.cm FINDINGS: Thyroid: Imaged portions of the thyroid gland are normal in size and attenuation. Thoracic aorta: The thoracic aorta is normal in caliber and demonstrates standard 3-vessel arch anatomy. No dissection is seen. Pulmonary vasculature: The pulmonary trunk is normal in caliber. There are no filling defects identified in main, lobar, or proximal segmental pulmonary branches to suggest pulmonary embolus. Evaluation of the segmental and subsegmental branches is degraded by motion artifact. Heart: The heart is mildly enlarged and without pericardial effusion. Lungs and pleural spaces: Evaluation of the lung parenchyma is modestly degraded by motion artifact. There is trace left pleural effusion and dependent atelectasis. There is no airspace consolidation typical for pneumonia. The trachea and central airways are clear. Mediastinum: There is no mediastinal lymphadenopathy. Ashley: Clear. Axillae: There is no axillary lymphadenopathy. Upper abdomen: Partially visualized upper abdominal viscera is within normal limits. Skeletal structures: No lytic or blastic bony lesions are seen. IMPRESSION: 1. There is no evidence of pulmonary embolus in the main, lobar, or proximal segmental pulmonary arteries. 2. Mild cardiomegaly. 3. Trace left pleural effusion and dependent atelectasis. 4. There is no airspace consolidation typical for pneumonia. ACT 112: Negative or not required by law. Electronically signed by: Ino Hernandez M.D. 11/22/2021 7:22 AM PG Care Time/CCT Total # of Minutes Spent Total Time Spent with Patient: Total time spent is greater than 50% in coordination of care (as documented) at patient's floor/unit and/or counseling patient: Coding Level of Care Code 69538 Subseq Hosp Care Lvl 2 Diagnoses Hypoxia R09.02 Generalized pruritus L29.9 Open fracture of tibia and fibula S82.209B; S82.409B Encounter type: initial encounter Laterality: left (1) Open fracture of tibia and fibula Encounter type: initial encounter Laterality: left
[2021-11-22 08:28] LABS: Basophils # (auto) 0.02 K/uL (0-0.2); Basophils % (auto) 0.2 %; Eosinophils # (auto) 0.14 K/uL (0-0.5); Eosinophils % (auto) 1.3 %; Hematocrit (blood only) 38.2 % (42-52); Hemoglobin 13.3 g/dL (14.0-18.0); Immature Granulocytes # (auto) 0.01 K/uL (0.00-0.02); Immature Granulocytes % (auto) 0.1 %; Lymphocytes # (auto) 1.03 K/uL (1.2-3.4); Lymphocytes % (auto) 9.4 %; Mean Corpuscular Hemoglobin 30.1 pg (25-34); Mean Corpuscular Hgb Conc 34.8 g/dL (32-36); Mean Corpuscular Volume 86.4 fL (80-100); Mean Platelet Volume 9.9 fL (7.4-10.4); Neutrophils # (auto) 8.68 K/uL (1.4-6.5); Platelet Count 267 K/uL (130-400); RDW Coefficient of Variation 12.4 % (11.5-14.5); RDW Standard Deviation 39.8 fL (36.4-46.3); Red Blood Count 4.42 M/uL (4.7-6.1); White Blood Count 10.98 K/uL (4.8-10.8)
[2021-11-22 08:40] LABS: Calcium 8.6 mg/dl (8.5-10.1); Creatinine Clr Calc Pharmacy 160.1 ml/min; Est GFR (African American) 143.2 ml/min; Est GFR (Non-African American) 123.5 ml/min; Magnesium 1.9 mg/dl (1.7-2.4); Potassium 3.7 mmol/L (3.5-5.1)
--- NOTE | 2021-11-22 08:42 | Orthopedic Progress Note ---
Date of Service November 22, 2021 Assessment & Plan (1) Open fracture of tibia and fibula: Plan: Postop day 2 status post IM tibial nailing left open tib-fib fracture Hypoxia/tachycardia-CTA negative for PE. Atelectasis noted. Continue spirometry regularly. Increase ambulation. Current O2 saturation level done at 0719 was 91% PT/OT protocols-nonweightbearing left lower extremity. DVT prophylaxis-aspirin 325 mg p.o. daily. Pain management as written. Patient seen by hospitalist service today. Patient progressing well. We will be setting him up with the primary care physician at the time of discharge. I have spoken to Kailyn Lemon PA-C and she feels the patient is stable for discharge. DC planning-plan for discharge to home today. Admission and Anticipated Discharge Date Admission Date: November 20, 2021 Subjective Postop day 2 Patient lying in bed awake and alert. Patient is more alert today. Consult was placed last night for hospitalist service secondary to patient's continued desaturation of oxygen levels off of O2 as well as tachycardia. Patient was not complaining of any shortness of breath or chest pain. He continues to remain without shortness of breath, chest pain, lightheadedness this morning. Patient underwent CTA last night and that there was no evidence of pulmonary embolus. Atelectasis noted. Having pain in the operative limb but appears controlled. Addendum: Rechecking the patient this afternoon, he looks and feels good. Pain is controlled. No other complaints at this time. Physical Exam Physical Exam: Splint and dressings are clean, dry, and intact. Continues with some mild numbness and tingling in the toes but is moving the toes well. Capillary refill is less than 2 seconds. Results & Data ([facility]) Vital Signs (Past 12 Hours) Vital Signs Temp Pulse Resp BP Pulse Ox 11/22/21 07:19 36.9 C 108 H 16 143/88 H 91 11/22/21 06:33 111 H 90 11/22/21 05:16 102 H 96 11/21/21 23:12 36.9 C 98 H 17 139/92 95 Laboratory Results Laboratory Results WBC 10.98 K/uL (4.8-10.8) H 11/22/21 07:48 RBC 4.42 M/uL (4.7-6.1) L 11/22/21 07:48 Hgb 13.3 g/dL (14.0-18.0) L 11/22/21 07:48 Hct 38.2 % (42-52) L 11/22/21 07:48 MCV 86.4 fL (80-100) 11/22/21 07:48 MCH 30.1 pg (25-34) 11/22/21 07:48 MCHC 34.8 g/dL (32-36) 11/22/21 07:48 RDW Std Deviation 39.8 fL (36.4-46.3) 11/22/21 07:48 RDW Coeff of Aura 12.4 % (11.5-14.5) 11/22/21 07:48 Plt Count 267 K/uL (130-400) 11/22/21 07:48 MPV 9.9 fL (7.4-10.4) 11/22/21 07:48 Immature Gran % (Auto) 0.1 % 11/22/21 07:48 Neut % (Auto) 79.0 % 11/22/21 07:48 Lymph % (Auto) 9.4 % 11/22/21 07:48 Imperial % (Auto) 10.0 % 11/22/21 07:48 Eos % (Auto) 1.3 % 11/22/21 07:48 Baso % (Auto) 0.2 % 11/22/21 07:48 Neut # (Auto) 8.68 K/uL (1.4-6.5) H 11/22/21 07:48 Lymph # (Auto) 1.03 K/uL (1.2-3.4) L 11/22/21 07:48 Imperial # (Auto) 1.10 K/uL (0.11-0.59) H 11/22/21 07:48 Eos # (Auto) 0.14 K/uL (0-0.5) 11/22/21 07:48 Baso # (Auto) 0.02 K/uL (0-0.2) 11/22/21 07:48 Immature Gran # (Auto) 0.01 K/uL (0.00-0.02) 11/22/21 07:48 Sodium 136 mmol/L (136-145) 11/22/21 07:48 Potassium 3.7 mmol/L (3.5-5.1) 11/22/21 07:48 Chloride 101 mmol/L (98-107) 11/22/21 07:48 Carbon Dioxide 27 mmol/L (21-32) 11/22/21 07:48 Anion Gap 8 (3-11) 11/22/21 07:48 BUN 13 mg/dl (6-23) 11/22/21 07:48 Creatinine 0.81 mg/dl (0.6-1.4) 11/22/21 07:48 Est Cr Clr Drug Dosing 160.1 ml/min 11/22/21 07:48 Est GFR ( Amer) 143.2 ml/min 11/22/21 07:48 Est GFR (Non-Af Amer) 123.5 ml/min 11/22/21 07:48 BUN/Creatinine Ratio 16.0 (10-20) 11/22/21 07:48 Glucose 111 mg/dl (70-99(Fasting)) H 11/22/21 07:48 Calcium 8.6 mg/dl (8.5-10.1) 11/22/21 07:48 Magnesium 1.9 mg/dl (1.7-2.4) 11/22/21 07:48 Total Bilirubin 0.4 mg/dl (0.2-1.0) 11/20/21 03:40 AST 25 U/L (13-39) 11/20/21 03:40 ALT 35 U/L (7-52) 11/20/21 03:40 Alkaline Phosphatase 58 U/L (34-104) 11/20/21 03:40 Total Protein 7.0 gm/dl (6.0-8.3) 11/20/21 03:40 Albumin 4.2 gm/dl (3.4-5.0) 11/20/21 03:40 Globulin 2.8 gm/dl (2.5-4.0) 11/20/21 03:40 Albumin/Globulin Ratio 1.5 (0.9-2) 11/20/21 03:40 SARS-CoV-2, RNA, NAAT NEGATIVE (NEGATIVE) 11/20/21 03:54 Impressions Chest CTA 11/21/21 21:23 CT ANGIOGRAM OF THE CHEST CLINICAL HISTORY: Tachycardia. Hypoxia. COMPARISON STUDY: Chest x-ray dated 11/20/2021. TECHNIQUE: Following the IV administration of 118 cc of Optiray 320, CT angiogram of the chest was performed from the upper abdomen to the thoracic inlet utilizing the pulmonary embolus protocol. Images are reviewed in the axial, sagittal, and coronal planes. 3-D MIPS images are created and assessed. IV contrast was administered without complication. A dose lowering technique was utilized adhering to the principles of ALARA. CT DOSE: 449.74 mGy.cm FINDINGS: Thyroid: Imaged portions of the thyroid gland are normal in size and attenuation. Thoracic aorta: The thoracic aorta is normal in caliber and demonstrates standard 3-vessel arch anatomy. No dissection is seen. Pulmonary vasculature: The pulmonary trunk is normal in caliber. There are no filling defects identified in main, lobar, or proximal segmental pulmonary branches to suggest pulmonary embolus. Evaluation of the segmental and subsegmental branches is degraded by motion artifact. Heart: The heart is mildly enlarged and without pericardial effusion. Lungs and pleural spaces: Evaluation of the lung parenchyma is modestly degraded by motion artifact. There is trace left pleural effusion and dependent atelectasis. There is no airspace consolidation typical for pneumonia. The trachea and central airways are clear. Mediastinum: There is no mediastinal lymphadenopathy. Ashley: Clear. Axillae: There is no axillary lymphadenopathy. Upper abdomen: Partially visualized upper abdominal viscera is within normal limits. Skeletal structures: No lytic or blastic bony lesions are seen. IMPRESSION: 1. There is no evidence of pulmonary embolus in the main, lobar, or proximal segmental pulmonary arteries. 2. Mild cardiomegaly. 3. Trace left pleural effusion and dependent atelectasis. 4. There is no airspace consolidation typical for pneumonia. ACT 112: Negative or not required by law. Electronically signed by: Ino Hernandez M.D. 11/22/2021 7:22 AM (1) Open fracture of tibia and fibula Encounter type: initial encounter Laterality: left
[2021-11-22] MEDS: MULTIVITAMIN TAB PO SCH (09:16)
[2021-11-22] MEDS: DOCUSATE SODIUM 100 MG CAP PO SCH (09:16)
[2021-11-22] MEDS: ASPIRIN 325 MG ECTAB PO SCH (10:44)
--- NOTE | 2021-11-26 08:03 | Discharge Summary ---
Date of Service date of discharge: November 22, 2021 date of admission: 11/20/21 Admission HPI Per Admitting Provider Mr. Espino is a 26-year-old male who injured his left leg morning of 11/20/21. 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 He had immediate pain, deformity, and open wound, and inability to bear weight on the left leg. Injury occurred around 2:30-3:00 AM. He was transported to the hospital, and did receive 2 g of IV Ancef in the ambulance en route to the hospital. In the emergency room, his wound was reported to be about 2 cm in length and directly over the fracture site in the anterior aspect of the lower leg. No gross contamination. The wound was washed out and dressed, and splint was applied. Principal Diagnosis Left leg open tibia and fibula fracture Discharge Exam Musculoskeletal Left Leg: Splint and dressings are clean, dry, and intact. Continues with some mild numbness and tingling in the toes but is moving the toes well. Capillary refill is less than 2 seconds. Discharge Data Allergies Allergy/AdvReac Type Severity Reaction Status Date / Time No Known Allergies Allergy Verified 11/20/21 05:23 Consultations 11/20/21 04:36 Consult Orthopedic Surgery Stat 11/21/21 20:30 Consult Hospitalist Routine Procedures Performed Operation Date: 11/20/21 09:00 Actual Procedures p and Intramedullary nailing of open tiba fracture (Left) - Roberto Ramsay M.D. s Irrigation and debridement of open tibia fracture (Left) - Roberto Ramsay M.D. Ordered Studies 11/20/21 [place] tibia/fibula LT 2V Routine 11/21/21 21:23 CT angio chest PE protocol Urgent Hospital Course (1) Open fracture of tibia and fibula: Postop day 2 status post IM tibial nailing left open tib-fib fracture Hypoxia/tachycardia-CTA negative for PE. Atelectasis noted. Continue spirometry regularly. Increase ambulation. Current O2 saturation level done at 0719 was 91% PT/OT protocols-nonweightbearing left lower extremity. DVT prophylaxis-aspirin 325 mg p.o. daily. Pain management as written. Patient seen by hospitalist service today. Patient progressing well. We will be setting him up with the primary care physician at the time of discharge. I have spoken to Kailyn Lemon PA-C and she feels the patient is stable for discharge. DC planning-plan for discharge to home today. Total Time Total Time Spent Total Time Spent (In Minutes): 20 Discharge Plan Discharge Items Patient Disposition: Home - Self-Care Reason For Visit: LEFT LOWER LEG INJURY Discharge Diagnosis: LEFT OPEN TIBIAL/FIBULAR FRACTURE Activity: Per Instructions section Weightbearing: Left non-weightbearing Weightbearing Comment: with crutches or walker Non-emergency contact: Surgeon Call non-emergency contact if: your pain is not controlled, your temperature is above 101.5, your wound has increased redness and your wound has increased drainage Follow-up/Referrals: Roberto Ramsay M.D. [Physician] - (Follow up with Dr Ramsay in 2 weeks from the day of your surgery for your first post operative visit. Please call for an appointment if on has not been scheduled for you. ) PCP,NO [Primary Care Provider] - Diet: Regular Addtl Attending Provider Instructions: YOU ARE TO BE NONWEIGTHBEARING ON YOUR LEFT LOWER EXTREMITY. KEEP DRESSING/SPLINT CLEAN AND DRY. YOU MAY CONTINUE GENTLE RANGE OF MOTION OF THE LEFT KNEE. KEEP YOUR LEFT LEG ELEVATED ON 1 OR 2 PILLOWS WHEN AT REST. CONTINUE ICE PACKS NEEDED. FOLLOW UP WITH DR RAMSAY IN 2 WEEKS FROM THE DAY OF YOUR SURGERY FOR YOUR FIRST POSTOPERATIVE CHECK UP. [phone] Pending Studies at Discharge: No Stand-Alone Forms: My [facility] [employer], Opioid Pain Management, Smoking Cessation Medications and DC Order Prescriptions: New acetaminophen [Tylenol Extra Strength] 500 mg Tablet 1,000 mg PO Q8 14 Days Qty: 84 RF: 0 aspirin [Ecotrin] 325 mg Tablet,Delayed Release (Dr/Ec) 325 mg PO QAM 30 Days Qty: 30 RF: 0 docusate sodium 100 mg Capsule 100 mg PO BID 14 Days Qty: 28 RF: 0 polyethylene glycol 3350 [Miralax] 17 gram powder in packet 17 g PO DAILY PRN (Reason: constipation) Qty: 5 RF: 0 oxycodone 5 mg Tablet 5 mg PO Q6H MDD 8 PRN (Reason: pain) Qty: 30 RF: 0 Discharge Orders: Discharge Order (Routine); Ordered 11/22/21 Ordered By: Tom Lamb/Other Patient Handouts: DVT Post Op Prevention, Using an Incentive Spirometer Admission Data Admit Date/Time: 11/20/21 04:42 Attending Provider: Roberto Ramsay Admit Provider: Roberto Ramsay Primary Care Provider: PCP,PATRICIA Other Providers: Roberto Ramsay ; Gilberto Andres Other Interventions: Discharge Summary Assessment (RN) Last Done: 11/22/21 15:31
== END 2021-11-22 16:26 | disposition home or self-care (01) | DRG 493 ==
LOC: ED 03:28 → 3E 04:42